=== PATIENT | male | born 1955 | race Caucasian/White ===

== ENCOUNTER 2019-11-23 08:43 | Emergency (ER) | payer OTHER ==
[~2019-11-23] VITALS: Ht 180.3 cm; Wt 99.8 kg
[2019-11-23 08:48] VITALS: BP 168/108
--- NOTE | 2019-11-23 08:51 | NUR ---
AT BEDSIDE FOR XRAY.
--- NOTE | 2019-11-23 09:08 | NUR ---
DIS[employer] CLAIM EXAMINER AT BEDSIDE FOR XRAY
--- NOTE | 2019-11-23 09:48 | NUR ---
Patient discharged in custody in stable condition. Written and verbal after care instructions given. Patient verbalizes understanding of instruction.
== END 2019-11-23 09:49 ==
LOC: ER 08:46
DX: S80.01XA Contusion of right knee, initial encounter (principal); I10 Essential (primary) hypertension; Z88.8 Allergy status to other drugs, medicaments and biological substances; V49.69XA Unspecified car occupant injured in collision with other motor vehicles in traffic accident, initial encounter; Y93.89 Activity, other specified; Y92.413 State road as the place of occurrence of the external cause; Y99.8 Other external cause status
CPT/HCPCS: 73564-TC

== ENCOUNTER 2024-09-06 21:40 | Emergency (ER) | payer MEDICARE, OTHER | END 2024-09-07 03:00 | disposition left against medical advice (07) | LOC: ER 21:48 | DX: R10.9 Unspecified abdominal pain (principal); Z53.21 Procedure and treatment not carried out due to patient leaving prior to being seen by health care provider ==